=== PATIENT | male | born 1960 | race Caucasian/White ===

== ENCOUNTER 2017-04-23 10:45 | Emergency (ER) | payer OTHER ==
[~2017-04-23] VITALS: Ht 167.6 cm; Wt 104.5 kg
[2017-04-23 11:27] LABS: HEMATOCRIT 39.2 % (38.0-50.0); MCH 30.1 PG (29.0-34.0); MCHC 33.7 G/DL (30.0-36.0); MCV 89.5 FL (86-99); MEAN PLAT.VOLUME 10.5 uM^3 (9.0-12.4); PLATELET COUNT 194 K/uL (156-360); RBC DIS.WIDTH-CV 13.2 % (11.8-14.6); RBC DIS.WIDTH-SD 43.8 % (39-53); RED BLOOD COUNT 4.38 M/uL (4.00-5.50); WHITE BLOOD COUNT 8.2 K/uL (4.1-10.2)
[2017-04-23 11:51] LABS: CHLORIDE 110 mEq/L (99-109); POTASSIUM 4.1 mEq/L (3.7-5.4); SODIUM 139 mEq/L (136-147)
[2017-04-23 11:53] LABS: GLUCOSE 98 mg/dL (70-99)
[2017-04-23 11:54] LABS: ANION GAP 6 MEQ/L (2-14)
[2017-04-23 11:55] LABS: TOTAL BILIRUBIN 0.6 mg/dL (0.0-1.0)
[2017-04-23 11:56] LABS: ALKALINE PHOSPHATASE 92 IU/L (3-129)
[2017-04-23 11:57] LABS: GFR ESTIMATE (CALCULATED) > 59 mL/min/
[2017-04-23 11:58] LABS: UREA NITROGEN (BUN) 8 mg/dL (9-23)
[2017-04-23 12:00] LABS: LIPASE 38 U/L (1.0-51.0)
[2017-04-23 12:33] LABS: ADD MIUA? NO; BILIRUBIN NEGATIVE; BLOOD NEGATIVE; COLOR STRAW ((YELLOW)); GLUCOSE (STRIP) NEGATIVE; KETONES NEGATIVE; LEUKOCYTES NEGATIVE; NITRITE NEGATIVE; PROTEIN (STRIP) NEGATIVE; SPECIFIC GRAVITY 1.006 (1.000-1.030); UCUL ADDED? NO; UROBILINOGEN 0.2 MG/DL (0.2-1.0)
[2017-04-23] MEDS ORDERED: BENTYL20 MG PO (15:37)
[2017-04-23] MEDS ORDERED: MIRALAX17 GM PO (15:37)
[2017-04-23] MEDS ORDERED: COLACE100 MG PO (15:37)
[2017-04-23 17:54] VITALS: BP 116/85
== END 2017-04-23 17:54 | disposition home or self-care (01) ==
LOC: EME 10:45
DX: K40.20 Bilateral inguinal hernia, without obstruction or gangrene, not specified as recurrent (principal); K43.9 Ventral hernia without obstruction or gangrene; D17.24 Benign lipomatous neoplasm of skin and subcutaneous tissue of left leg; K76.9 Liver disease, unspecified; K59.00 Constipation, unspecified; E86.0 Dehydration; Z90.49 Acquired absence of other specified parts of digestive tract
CPT/HCPCS: 74177; 80053; 81003; 83690; 85027; 99281; 99284; J3360